=== PATIENT | female | born 1960 | race American Indian/Alaskan Native ===

== ENCOUNTER 2017-10-23 06:28 | Day surgery (SDC) | payer MEDICARE ==
[~2017-10-23 06:28] MED LIST: NACL 0.9% 1000 ML 1,000 ML IV SCH; VERSED IV NR
[2017-10-23] MEDS ORDERED: NACL BACTERIOSTATIC INFILTRATI ONE (06:30)
[2017-10-23] MEDS ORDERED: SUBLIMAZE ONE (07:31)
[2017-10-23] MEDS ORDERED: XYLOCAINE MPF 2% ONE (07:31)
[2017-10-23] MEDS ORDERED: DECADRON ONE (07:31)
[2017-10-23] MEDS ORDERED: ZOFRAN ONE (07:31)
[2017-10-23] MEDS ORDERED: DIPRIVAN 10 MG/ML IV ONE (07:31)
[2017-10-23] MEDS ORDERED: MORPHINE IV PRN (07:42)
[2017-10-23] MEDS ORDERED: ZOFRAN IV PRN (07:42)
[2017-10-23] MEDS ORDERED: PERCOCET 5/325 PO PRN (07:42)
--- NOTE | 2017-10-23 07:42 | Anesthesia Day of Surgery ---
Anesthesia Day of Surgery - Day of Surgery Patient Examined: Yes Patient is NPO: Yes
--- NOTE | 2017-10-23 07:43 | Anesthesia Consultation ---
Anesthesia Consult and Med Hx Date of service: 10/23/17 - Airway Anesthetic Teeth Evaluation: Good, Partials (upper) ROM Head & Neck: Adequate Mental/Hyoid Distance: Adequate Mallampati Class: Class II Intubation Access Assessment: Probably Good - Pulmonary Exam CTA: Yes - Cardiac Exam Cardiac Exam: RRR - Pre-Operative Health Status ASA Pre-Surgery Classification: ASA2 Proposed Anesthetic Plan: General - Pulmonary Hx Smoking: No Hx Sleep Apnea: No (BANDAR PRE SCREEN LOW RISK) - Cardiovascular System Hx Hypertension: Yes (OFF MEDS SINCE 10/2016) - Central Nervous System Hx Seizures: Yes (ON DAILY MEDS- LAST SEIZURE 2-3 MONTHS AGO) Hx Psychiatric Problems: Yes - Hematic Hx Anemia: Yes (NO RECENT) - Other Systems Hx Cancer: No Hx Obesity: Yes
[2017-10-23] MEDS ORDERED: OMNIPAQUE 300 MG/50 ML (CATH LAB) IV ONE (07:48)
[2017-10-23] MEDS ORDERED: WATER FOR IRRIG STERILE IR ONE (07:48)
[2017-10-23] MEDS ORDERED: ANCEF/STERILE WATER 2 GM/20 ML IV NR (08:00)
--- NOTE | 2017-10-23 08:36 | Post Operative Note ---
Date of procedure: 10/23/17 Pre-op diagnosis: hematuria Post-op diagnosis: same Findings: normal Procedure: cysto rpgs Anesthesia: GETA Surgeon: ISAIAS MERRILL Estimated blood loss: none Pathology: none Condition: stable Disposition: PACU
--- NOTE | 2017-10-23 08:37 | Discharge Summary ---
Short Stay Discharge Plan Activity: no restrictions Weight Bearing Status: Full Weight Bearing Diet: low fat Special Instructions: other (inc fluids ) Follow up with: CORINA STRICKLAND MD [Primary Care Provider] - 7 Days ISAIAS MERRILL MD [Staff Physician] - 6 Weeks
--- NOTE | 2017-10-23 08:42 | Fluoroscopy Report ---
RETROGRADE PYELOGRAM: History: Hematuria. Fluoroscopy was provided by radiology during retrograde pyelogram by Dr. Felipe. 9 fluoroscopic images were captured. There is adequate filling of the ureters and intrarenal collecting systems with no filling defects or anatomic abnormalities identified. Impression: No abnormality identified.
--- NOTE | 2017-10-23 09:06 | Operative Report ---
PREOPERATIVE DIAGNOSIS: Hematuria. POSTOPERATIVE DIAGNOSIS: Hematuria. PROCEDURES: Cystoscopy, retrograde pyelograms. No biopsies needed. SURGEON: Juan David Felipe M.D. ANESTHESIA: General. FINDINGS: This is a woman with hematuria, she now presents for cystoscopy. She denies any recent gross hematuria. CT scan was unremarkable of the genitourinary tract. DESCRIPTION OF PROCEDURE: The patient brought to the operating room and placed on the operating table. Following induction of anesthesia, placed in lithotomy position, prepped and draped in usual sterile fashion. Cystourethroscopy showed no bladder lesions. Retrograde showed good filling, good drainage bilaterally. The patient tolerated procedure well. No complications, brought to recovery in stable condition. JOB# [id number] CHAUNCEY/EDUARDO
--- NOTE | 2017-10-23 13:26 | Post Anesthesia Evaluation ---
- Post Anesthesia Evaluation Patient Participated: Yes Airway Patent: Yes Stable Respiratory Function: Yes Nausea/Vomiting: No Temp > 96.8F: Yes Pain Manageable: Yes Adequeate Hydration: Yes Anesthesia Complications: No Block Receding Appropriately: Not Applicable Patient on Ventilator: No
[2017-10-23 16:13] VITALS: BP 123/84
== END 2017-10-23 11:18 | disposition home or self-care (01) ==
LOC: OR 06:28
PROVIDERS: ATTEND Urology
DX: R31.9 Hematuria, unspecified (principal); I10 Essential (primary) hypertension; E66.9 Obesity, unspecified; Z68.30 Body mass index [BMI] 30.0-30.9, adult
CPT/HCPCS: 52000; 74420; C1758; C1769; J0690; J1100; J2250; J2405; J2704; J3010; J7030; Q9967; J2930